=== PATIENT | male | born 1965 | race Caucasian/White ===

== ENCOUNTER 2017-05-26 22:32 | Emergency (ER) | payer MEDICAID, MEDICARE, OTHER ==
[~2017-05-26 22:32] MED LIST: BUTR5DIS2 TD; CARI350T19 PO; FOLI1 PO; HYDR-3535 PO; LORA1TAB PO; MELO15 PO; SILE3TAB3 PO; VIIB40TA PO
[2017-05-26 22:35] VITALS: BP 126/84; PULSE 70; RESP 16; TEMP 98.2; O2SAT 96
[2017-05-26] MEDS ORDERED: METR500T10 PO (23:50)
[2017-05-26] MEDS ORDERED: ZOFR4TAB3 SL (23:50)
[2017-05-26] MEDS ORDERED: CIPR250T2 PO (23:50)
[2017-05-26] MEDS ORDERED: DIAZ5 PO (23:50)
[2017-05-26] MEDS ORDERED: VENTAER INH (23:50)
--- NOTE | 2017-05-26 23:56 | PD ---
HPI Chief Complaint: Psychiatric Symptoms Time Seen by Provider: 23:29 Travel History International Travel<30 days: No Contact w/Intl Traveler<30days: No Traveled to known affect area: No History of Present Illness HPI PATIENT STATES THAT HE IS TIRED OF ABUSING OPIATES AND DOESN'T WANT TO CONTINUE MISUSING OR ABUSING IT....CURRENTLY HAS NO HI/SI BUT IS SEEKING HELP FOR DETOX. WAS AT [facility] WAITING FOR 3HRS THEN ADVISED TO COME TO [place]. [facility] Past Medical History Arthritis: Yes Anxiety: Yes COPD: Yes Diminished Hearing: No Tetanus Vaccination: Unknown Social History Alcohol Use: No Tobacco Use: Yes Substance Use: No (opiods) Allergies-Medications (Allergen,Severity, Reaction): Coded Allergies: Penicillin (Verified Allergy, Severe, 05/26/17) Latex (Verified Allergy, Unknown, 05/26/17) Toradol (Verified Allergy, Unknown, 05/26/17) Reported Meds & Prescriptions Reported Meds & Active Scripts Active Reported Ventolin Hfa 18 GM Inh (Albuterol Sulfate) 90 Mcg/Act Aer 2 Puff INH Q4-6H PRN Valium (Diazepam) 5 Mg Tab 5 Mg PO BID PRN Metronidazole 500 Mg Tab 500 Mg PO TID Zofran Odt (Ondansetron Odt) 4 Mg Tab 4 Mg SL Q8HR PRN Ciprofloxacin (Ciprofloxacin HCl) 250 Mg Tab 250 Mg PO BID Review of Systems Except as stated in HPI: all other systems reviewed are Neg Physical Exam Narrative GENERAL: SKIN: Warm and dry. HEAD: Atraumatic. Normocephalic. EYES: Pupils equal and round. No scleral icterus. No injection or drainage. ENT: No nasal bleeding or discharge. Mucous membranes pink and moist. NECK: Trachea midline. No JVD. CARDIOVASCULAR: Regular rate and rhythm. RESPIRATORY: No accessory muscle use. Clear to auscultation. Breath sounds equal bilaterally. GASTROINTESTINAL: Abdomen soft, non-tender, nondistended. MUSCULOSKELETAL: Extremities without clubbing, cyanosis, or edema. No obvious deformities. NEUROLOGICAL: Awake and alert. No obvious cranial nerve deficits. Motor grossly within normal limits. Five out of 5 muscle strength in the arms and legs. Normal speech. PSYCHIATRIC: Appropriate mood and affect; insight and judgment normal. NO SI/HI Data Data Last Documented VS Vital Signs Date Time Temp Pulse Resp B/P Pulse Ox O2 Delivery O2 Flow Rate FiO2 05/27/17 00:01 64 18 111/74 100 Room Air 05/26/17 22:35 98.2 Orders Complete Blood Count With Diff (05/26/17 23:49) Comprehensive Metabolic Panel (05/26/17 23:49) Psych Screen (05/26/17 23:49) Drug Screen, Random Urine (05/26/17 23:49) Alcohol (Ethanol) (05/26/17 23:49) Salicylates (Aspirin) (05/26/17 23:49) Tylenol (Acetaminophen) (05/26/17 23:49) Lipase (05/26/17 23:55) Labs Laboratory Tests Test 05/26/17 23:55 White Blood Count 9.4 TH/MM3 Red Blood Count 5.09 MIL/MM3 Hemoglobin 16.1 GM/DL Hematocrit 45.3 % Mean Corpuscular Volume 89.0 FL Mean Corpuscular Hemoglobin 31.7 PG Mean Corpuscular Hemoglobin 35.6 % Concent Red Cell Distribution Width 13.9 % Platelet Count 182 TH/MM3 Mean Platelet Volume 8.8 FL Neutrophils (%) (Auto) 66.8 % Lymphocytes (%) (Auto) 25.8 % Monocytes (%) (Auto) 5.4 % Eosinophils (%) (Auto) 1.3 % Basophils (%) (Auto) 0.7 % Neutrophils # (Auto) 6.3 TH/MM3 Lymphocytes # (Auto) 2.4 TH/MM3 Monocytes # (Auto) 0.5 TH/MM3 Eosinophils # (Auto) 0.1 TH/MM3 Basophils # (Auto) 0.1 TH/MM3 CBC Comment DIFF FINAL Differential Comment Sodium Level 138 MEQ/L Potassium Level 4.4 MEQ/L Chloride Level 103 MEQ/L Carbon Dioxide Level 28.4 MEQ/L Anion Gap 7 MEQ/L Blood Urea Nitrogen 10 MG/DL Creatinine 1.15 MG/DL Estimat Glomerular Filtration 67 ML/MIN Rate Random Glucose 95 MG/DL Calcium Level 9.1 MG/DL Total Bilirubin 0.5 MG/DL Aspartate Amino Transf 27 U/L (AST/SGOT) Alanine Aminotransferase 18 U/L (ALT/SGPT) Alkaline Phosphatase 81 U/L Total Protein 8.1 GM/DL Albumin 4.1 GM/DL Lipase 117 U/L Salicylates Level 4.9 MG/DL Acetaminophen Level LESS THAN 2.0 MCG/ML Ethyl Alcohol Level LESS THAN 3 MG/DL MDM Medical Decision Making Medical Screen Exam Complete: Yes Emergency Medical Condition: Yes Medical Record Reviewed: Yes Differential Diagnosis COINGESTIONS V ELECTROLYTE ABNL Narrative Course PATIENT WAS MEDICALLY CLEARED AND ADVISED TO F/U WITH [facility] FOR DETOX PROCESS , THERE ARE NO DETOX PROGRAM WITHIN [place] Diagnosis Primary Impression: MEDICALLY CLEARED Referrals: Karina Carolina FOR HELP WITH DETOX PROCESS, TODAY YOU WERE MEDICALLY CLEARED AND THEY CAN ACCESS THIS INFORMATION ON SITE Disposition: 01 DISCHARGE HOME Condition: Stable Eddie Haley MD May 26, 2017 23:56
[2017-05-27 00:01] VITALS: BP 111/74; PULSE 64; RESP 18; O2SAT 100
[2017-05-27 00:09] LABS: AUTOMATED NEUTROPHIL # 6.3 TH/MM3 (1.8-7.7); BASOPHIL # 0.1 TH/MM3 (0-0.2); BASOPHIL % 0.7 % (0.0-2.0); EOSINOPHIL # 0.1 TH/MM3 (0-0.4); EOSINOPHIL % 1.3 % (0.0-4.0); HEMATOCRIT 45.3 % (39.0-51.0); HEMO FLAGS DIFF FINAL; LYMPH % 25.8 % (9.0-44.0); LYMPHOCYTE # 2.4 TH/MM3 (1.0-4.8); MEAN CORPUSCULAR HEMOGLOBIN 31.7 PG (27.0-34.0); MEAN CORPUSCULAR HGB CONC 35.6 % (32.0-36.0); MONO % 5.4 % (0.0-8.0); NEUT % 66.8 % (16.0-70.0); PLATELET COUNT 182 TH/MM3 (150-450); RED BLOOD COUNT 5.09 MIL/MM3 (4.50-5.90); RED CELL DISTRIBUTION WIDTH 13.9 % (11.6-17.2); WHITE BLOOD COUNT 9.4 TH/MM3 (4.0-11.0)
[2017-05-27 00:28] LABS: ALKALINE PHOSPHATASE 81 U/L (45-117); TOTAL BILIRUBIN ADULT 0.5 MG/DL (0.2-1.0)
[2017-05-27 00:31] LABS: ALT (GPT) 18 U/L (12-78); ANION GAP 7 MEQ/L (5-15); AST (GOT) 27 U/L (15-37); BICARBONATE 28.4 MEQ/L (21.0-32.0); BLOOD UREA NITROGEN 10 MG/DL (7-18); CHLORIDE 103 MEQ/L (98-107); GLOMERULAR FILTRATION RATE 67 ML/MIN (>89); POTASSIUM 4.4 MEQ/L (3.5-5.1); SODIUM (NA) 138 MEQ/L (136-145)
[2017-05-27 00:32] LABS: ACETAMINOPHEN LESS THAN 2.0 MCG/ML (10.0-30.0); ALCOHOL LESS THAN 3 MG/DL (0-5)
[2017-05-27 02:02] VITALS: BP 110/70; PULSE 56; RESP 18; O2SAT 95
[2017-05-27 06:41] VITALS: BP 121/68; PULSE 72; RESP 18; O2SAT 99
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
== END 2017-05-27 13:38 | disposition home or self-care (01) ==
LOC: NEPD 22:32 → NEPJ 05-27 13:38
DX: F11.10 Opioid abuse, uncomplicated (principal); Z72.0 Tobacco use
CPT/HCPCS: 80053; 80307; 83690; 85025; 99284